=== PATIENT | female | born 2000 | race Caucasian/White ===

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

== ENCOUNTER → 2020-09-23 11:30 | Outpatient (CLI) | payer MEDICAID, SELFPAY ==
[2018-02-01 15:29] VITALS: BMI 15.4
[2020-09-23 15:22] LABS: Absolute Lymphocyte Count 0.92 X10^3/uL (0.83-4.51); Basophil# 0.02 X10^3/uL; Basophil% 0.3 % (0-1); Eosinophil# 0.06 X10^3/uL; Eosinophils% 0.9 % (0-5); Hemoglobin 15.5 g/dL (12.0-15.0); Lymphocyte # 0.92 X10^3/ul (0.83-4.51); Lymphocyte % 14.2 % (19-41); Mean Corp Hgb Conc 31.6 g/dL (32-36); Mean Corpuscular Hgb 32.2 pg (27.0-32.0); Mean Corpuscular Volume 101.9 fL (81-99); Mean Platelet Vol. 10.2 fl (6.2-12.0); Monocyte# 0.48 X10^3/uL; Monocyte% 7.4 % (0-10); NRBC Flagged by Analyzer 0 % (0-5); Neutrophil # 4.99 X10^3/uL (2.7-7.7); Platelet Count 228 K/mm3 (150-450); RBC Distribution Width CV 11.8 % (11.6-14.6); RBC Distribution Width SD 44.5 fl (35.1-43.9); Red Blood Count 4.81 M/mm3 (4.2-5.4); White Blood Count 6.5 K/mm3 (4.4-11.0)
[2020-09-23 15:38] LABS: Anion Gap 9 (5-15); BUN 10 mg/dL (7-18); BUN/Creat Ratio 9.9 RATIO (10-20); Calcium,Total 9.8 mg/dL (8.5-10.1); Chloride 109 mmol/L (98-107); Creatinine, Serum 1.01 mg/dL (0.55-1.02); EST Glomerular Filtration Rate 74 mL/min (>60); Est Glom Filt Rate - Afr Amer 89 mL/min (>60); Glucose 104 mg/dL (74-106); Potassium 3.4 mmol/L (3.5-5.1); Sodium Level 143 mmol/L (136-145)
[2020-09-23 16:10] LABS: Hepatitis B Surface Antibody Non-Reactive; Hepatitis B Surface Antigen Non-Reactive (Nonreactive); Hepatitis C Antibody Non-Reactive (Nonreactive)
[2020-09-25 20:08] LABS: QNTFERON TB Mitogen Value > 10.00 IU/mL (.); QNTFERON TB Nil Value 0 IU/mL (.); QNTFERON TB1+ Ag Value 0.04 IU/mL (.); QNTFERON TB2+ Ag Value 0 IU/mL (.)
[2020-09-25 21:04] LABS: Hepatitis B Core Ab Total Negative (Negative); QNTIFERON TB Positive Criteria Negative (Negative)
== END ==
PROVIDERS: PCP Student in an Organized Health Care Education/Training Program; Referring Provider Dermatology; Visit Provider Dermatology
DX: L40.0 Psoriasis vulgaris (principal)
CPT/HCPCS: 36415; 80048; 85025; 86480; 86704; 86705; 86706; 86803; 87340

== ENCOUNTER 2020-11-27 06:45 | Day surgery (SDC) | payer MEDICAID, SELFPAY ==
[2020-11-27] VITALS (10 sets, daily range): BP systolic 116–129; BP diastolic 73–88; PULSE 91–113; RESP 16–20; TEMP 36.1–36.5; O2SAT 97–100; BMI 14.9
[2020-11-27 07:16] LABS: Internal QC Validated? YES +Cl - CLEAR BKGD; Pregnancy, Urine Negative Negative
[2020-11-27] MEDS: Lactated Ringers 1,000 ML 100 ML IV ×2 (07:35→09:15)
[2020-11-27] MEDS: Cefazolin 2 GM in 0.9% Normal Saline 100 ML IV (08:43)
--- NOTE | 2020-11-27 08:51 | PCM.OPRPT ---
Problems Associated Problem List Diagnoses (1) Left ureteral calculus: (2) Flank pain: Report of Operation Date of Procedure: 11/27/20 Pre-Operative Diagnosis: Left distal ureteral stones with flank pain Post-Operative Diagnosis: Same, passed Surgery/Procedure Performed:: Cystoscopy, left retrograde pyelogram, left ureteroscopy Surgeon: Jerri Hagan Type of Anesthesia: General Description of Procedure: The patient is a 19-year-old female with approximately 4 weeks of left flank pain ultimately found to have distal left ureteral calculi. Informed consent was obtained with the patient and mother for proceeding with surgical intervention for the stones. The patient was taken to the operating room and placed on the operating room table. Anesthesia monitored the head, neck, airway, IV access and vital signs throughout the case. Once anesthesia was appropriate ministered, the patient was placed into dorsal lithotomy position was prepped and draped in usual sterile fashion. A cystourethroscopy revealed some edema at the left ureteral orifice. The remainder of the cystoscopy was normal. The left UO was intubated gently with an 8 Romanian cone-tip catheter and approximately 15 cc of contrast was injected in retrograde fashion under fluoroscopic visualization. This revealed no filling defects or abnormalities. The calyces were nice and sharp. At this time a 0.035 Glidewire was inserted to the renal pelvis and a semirigid ureteroscope was used to gently intubate the left ureteral orifice. The ureteroscope was easily passed all the way up to the renal pelvis with no evidence of stone, filling defect or abnormality. There is no injury identified within the ureter on removal under direct visualization of the ureteroscope. At this point the Glidewire was removed and the patient's bladder was emptied and the case was terminated. She was awakened and taken to the recovery room in good condition. There were no complications during this procedure. Grafts/Implants Used: None Complications None Admit VTE Documentation VTE Present on Admission: Yes VTE Mechan Device Prophylaxis: SCD's VTE Pharm Prophylaxis ordered?: No Reason prophylaxis not ordered:: Treatment Not Indicated
--- NOTE | 2020-11-27 08:53 | PCM.DC ---
Discharge Instructions Diet Discharge Diet: No restrictions Activity Discharge Activity: Return to Normal Activity Dressing / Incision Call your doctor if you observe: Fever of 101 or Higher, Inability to urinate and Uncontrolled pain Follow Up Care Please Follow Up With: Jerri Hagan MD When: call for appt to be seen in 4 weeks Test Results: Test results from this visit will be discussed in further detail at your follow-up appointment, if applicable. Discharge Plan Admission Attending Provider: Jerri Hagan Primary Care Provider: Eugenio Shultz Discharge Orders/Prescriptions Prescriptions: Continued levetiracetam [Keppra] 500 MG tablet 750 mg PO BID RF: 0 midazolam 5 MG/2.5 ML syrup 4 mg NASAL PRN PRN (Reason: Seizure) RF: 0 folic acid 1 mg tablet 1 mg PO DAILY RF: 0 sertraline 50 mg tablet 50 mg PO DAILY RF: 0 medroxyprogesterone [Depo-Provera] 150 mg/mL Syringe 300 mg IM .Q3 MONTHS RF: 0 rufinamide [Banzel] 200 mg tablet 600 mg PO TID RF: 0 Referrals / Follow Up: Eugenio Shultz DO [Primary Care Provider] - Disposition Disposition (needs filled in before D/C Order can be placed): Home, Self Care
[2020-11-27] MEDS: Acetaminophen 325 MG Tablet 650 MG PO (11:40)
== END 2020-11-27 12:18 | disposition home or self-care (01) ==
LOC: SDC 06:45 → AC 06:47
PROVIDERS: PCP Student in an Organized Health Care Education/Training Program; Referring Provider Urology; Visit Provider Urology
PROC: 0TJ98ZZ Inspection of Ureter, Via Natural or Artificial Opening Endoscopic (ICD-10-PCS; CPT 52352; principal; 2020-11-27 08:35)
DX: N20.1 Calculus of ureter (principal); N39.0 Urinary tract infection, site not specified
CPT/HCPCS: 00910; 52351; 76000; 81025; J7120; J2405

== ENCOUNTER → 2021-01-26 11:15 | Outpatient (CLI) | payer MEDICAID, SELFPAY ==
--- NOTE | 2021-01-26 11:18 | US_ITS ---
STUDY: RENAL ULTRASOUND - COMPLETE REASON FOR EXAM: Female, 20 years old. STONES,BACK PAIN TECHNIQUE: Ultrasound evaluation of the kidneys was performed with real-time and static howard-scale imaging. COMPARISON: None. FINDINGS: RIGHT KIDNEY: Normal location of the right kidney, which is normal in size. The right kidney measures 8.8 cm. There is a normal cortex of the right kidney. The renal cortex measures 1.1 cm. There is no right renal mass or cyst. There is a nonobstructing 4 mm stone in the right renal midpole. There is no right hydronephrosis. DISTAL RIGHT URETER: There is non-visualization of the distal right ureter. There is no demonstrated right ureterovesical junction calculus. There is a visualized right ureteral jet. LEFT KIDNEY: Normal location of the left kidney, which is normal in size. The left kidney measures 9 cm. There is a normal cortex of the left kidney. The renal cortex measures 0.9 cm. There is no left renal mass or cyst. There is a nonobstructing 2 mm stone in the left renal lower pole. There is no left hydronephrosis. DISTAL LEFT URETER: There is non-visualization of the distal left ureter. There is no demonstrated left ureterovesical junction calculus. There is a visualized left ureteral jet. BLADDER: The distended urinary bladder has a volume of 91 ml. . There is a normal wall thickness of the distended urinary bladder. There is no demonstrated mass within the urinary bladder. There are no demonstrated bladder calculi. US/Kidney and Bladder IMPRESSION: Normal ultrasound of the kidneys and urinary bladder. There are bilateral nonobstructing renal stones. No hydronephrosis. Electronically Signed: Dania Alvarado MD at 17:01 EDT Tel , Service support ,
== END ==
PROVIDERS: PCP Student in an Organized Health Care Education/Training Program; Referring Provider Urology; Visit Provider Urology
DX: N20.0 Calculus of kidney (principal); M54.9 Dorsalgia, unspecified
CPT/HCPCS: 76770

== ENCOUNTER 2021-09-01 15:44 | Day surgery (SDC) | payer MEDICAID, SELFPAY ==
[2021-09-01 16:38] VITALS: BP 114/77; PULSE 98; RESP 18; TEMP 36.9; O2SAT 99; BMI 15.0
[2021-09-01] MEDS: Lactated Ringers 1,000 ML 15 ML IV (16:51)
--- NOTE | 2021-09-01 20:13 | PCM.DC ---
Discharge Instructions Diet Discharge Diet: No restrictions Activity Discharge Activity: Return to Normal Activity Dressing / Incision Call your doctor if you observe: Fever of 101 or Higher, Inability to urinate and Inability to have a bowel movement Follow Up Care Please Follow Up With: Jerri Hagan MD When: call office for appt Test Results: Test results from this visit will be discussed in further detail at your follow-up appointment, if applicable. Discharge Plan Admission Attending Provider: Jerri Hagan Primary Care Provider: Cooper Burns Discharge Orders/Prescriptions Prescriptions: Continued levetiracetam [Keppra] 500 MG tablet 750 mg PO BID RF: 0 midazolam 5 MG/2.5 ML syrup 4 mg NASAL PRN PRN (Reason: Seizure) RF: 0 folic acid 1 mg tablet 1 mg PO DAILY RF: 0 sertraline 50 mg tablet 50 mg PO DAILY RF: 0 rufinamide [Banzel] 200 mg tablet 600 mg PO TID RF: 0 Epidiolex 100 mg/mL solution 3 mg PO BID RF: 0 phenazopyridine [Pyridium] 200 mg Tablet 200 mg PO TID PRN (Reason: Pain) RF: 0 sennosides [Senna Lax] 8.6 mg Tablet 8.6 mg PO BID PRN (Reason: Constipation) RF: 0 ciprofloxacin HCl [Cipro] 250 mg Tablet 250 mg PO BID RF: 0 tamsulosin [Flomax] 0.4 mg Capsule 0.4 mg PO DAILY RF: 0 ondansetron 4 mg Tablet,Disintegrating 4 mg PO Q6H PRN (Reason: Nausea) RF: 0 cholecalciferol (vitamin D3) [Vitamin D3] 50 mcg (2,000 unit) Capsule 50 mcg PO DAILY RF: 0 Referrals / Follow Up: Cooper Burns MD [Primary Care Provider] - Disposition Disposition (needs filled in before D/C Order can be placed): Home, Self Care
--- NOTE | 2021-09-01 20:14 | OP.PCM_ITS ---
Problems Associated Problem List Diagnoses (1) Right ureteral calculus: Report of Operation Date of Procedure: 09/01/21 Pre-Operative Diagnosis: Right ureteral calculus Post-Operative Diagnosis: Same Surgery/Procedure Performed:: Cystoscopy, removal of right ureteral stent, right retrograde pyelogram Surgeon: Jerri Hagan Type of Anesthesia: [facility] [place] Description of Procedure: The patient is a 20-year-old female with a history of stones who developed a ureteral calculus with obstruction and infection. [facility] She had a follow-up CT scan revealing no evidence of remaining stones. Due to her seizure history and increased seizure activity with significant pain, she now presents for removal of her stent with further evaluation for remaining stone. Informed consent was obtained by patient and mother. The patient was taken to the operating room and placed on the operating room table. Anesthesia monitored the head, neck, airway, IV access and vital signs throughout the case. Once anesthesia was appropriately ministered the patient was placed into dorsal lithotomy position was prepped and draped in usual sterile fashion. A cystourethroscopy was then performed through the urethra under direct visualization. The right ureteral stent was easily observed, grasped and removed without difficulty. An 8 Kinyarwanda cone-tip catheter was then used to inject contrast in retrograde fashion under fluoroscopic visualization. No filling defects were identified. The calyces were nice and sharp. There was no evidence of obstruction and then contrast emptied from the collecting system without difficulty. At this time the patient's bladder was emptied and the case was terminated. She was awakened and taken to the recovery room in good condition. There were no complications during the procedure. Of note she does have a few nevi on her perineum and the area of the mons pubis. I have instructed mom to have these evaluated by dermatology. Grafts/Implants Used: None Complications None Admit VTE Documentation VTE Present on Admission: Yes VTE Mechan Device Prophylaxis: SCD's VTE Pharm Prophylaxis ordered?: No Reason prophylaxis not ordered:: Treatment Not Indicated
[2021-09-01 20:16] VITALS: BP 114/77; BP 127/91; PULSE 92; RESP 20; TEMP 36.5; O2SAT 99
[2021-09-01 20:21] VITALS: BP 114/77; BP 126/93; PULSE 88; RESP 18; O2SAT 100
[2021-09-01 20:25] VITALS: BP 114/77; BP 130/98; PULSE 92; RESP 18; O2SAT 100
[2021-09-01 20:31] VITALS: BP 114/77; BP 119/89; PULSE 100; RESP 18; TEMP 36.4; O2SAT 100
[2021-09-01 20:51] VITALS: BP 114/77
== END 2021-09-01 21:10 | disposition home or self-care (01) ==
LOC: SDC 15:47 → AC 15:50
PROVIDERS: PCP Pediatrics; Visit Provider Urology
PROC: 0TJ98ZZ Inspection of Ureter, Via Natural or Artificial Opening Endoscopic (ICD-10-PCS; CPT 52352; principal; 2021-09-01 18:10)
DX: N13.6 Pyonephrosis (principal); M06.9 Rheumatoid arthritis, unspecified; L40.50 Arthropathic psoriasis, unspecified; G40.909 Epilepsy, unspecified, not intractable, without status epilepticus; M41.9 Scoliosis, unspecified; Z79.899 Other long term (current) drug therapy; E55.9 Vitamin D deficiency, unspecified; F84.0 Autistic disorder; F41.9 Anxiety disorder, unspecified; F32.A Depression, unspecified; G47.30 Sleep apnea, unspecified; Z99.3 Dependence on wheelchair; Z15.89 Genetic susceptibility to other disease
CPT/HCPCS: 52310; 00910; 76000; J7120

== ENCOUNTER → 2023-12-06 | Outpatient (CLI) | payer MEDICAID, SELFPAY ==
[2023-12-08 13:08] LABS: QNTFERON TB Mitogen Value > 10.00 IU/mL (.); QNTFERON TB Nil Value 0.84 IU/mL (.); QNTFERON TB1+ Ag Value 0 IU/mL (.); QNTFERON TB2+ Ag Value 0 IU/mL (.); QNTIFERON TB Positive Criteria Negative (Negative)
== END | disposition home or self-care (01) ==
LOC: MTLAB 15:23
PROVIDERS: PCP Pediatrics; Referring Provider Physician Assistant; Visit Provider Physician Assistant
DX: L40.0 Psoriasis vulgaris (principal); M12.9 Arthropathy, unspecified; Z79.899 Other long term (current) drug therapy
CPT/HCPCS: 36415; 86480